=== PATIENT | male | born 1980 | race Caucasian/White ===

== ENCOUNTER → 2017-07-07 | Outpatient (REF) ==
[~2017-07-07] MED LIST: BIMA2.5D5 OP; CHOL100052 PO; LEVE-14 PO; POTA20TA94 PO
== END ==
LOC: AUD 09:35
PROVIDERS: ATTEND Internal Medicine
DX: Z01.10 Encounter for examination of ears and hearing without abnormal findings (principal)
CPT/HCPCS: 92552

== ENCOUNTER 2017-07-08 09:36 | Emergency (ER) | payer OTHER ==
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
[2017-07-08] MEDS ORDERED: KETOROLAC 60 MG/2 ML VIAL IM ONE (10:05)
--- NOTE | 2017-07-08 10:36 | RADIOLOGY IMAGING REPORT ---
FACILITY: [facility] - [place] PATIENT NAME: Gilbert Mayorga : 1980 MR: [id number] V: [id number] EXAM DATE: ORDERING PHYSICIAN: CHAKA CARROLL TECHNOLOGIST: [place] [facility] [place] Mayorg[place] : 1980 Visit/Account:[id number] Date of Sevice: 07/08/2017 Technique: CHEST PA AND LAT HISTORY: Trauma COMPARISON: None available Findings: The lungs are clear. No pleural effusion or pneumothorax. The cardiomediastinal silhouett e is normal. No acute fracture. Impression: 1. No acute cardiopulmonary process. Report Dictated By: Alfie Manning DO at 07/08/2017 10:31 AM Report E-Signed By: Alfie Manning DO at 07/08/2017 10:33 AM WSN:[id number]
[2017-07-08] MEDS ORDERED: IBUPROFEN 600 MG TAB PO ONE (11:25)
[2017-07-08 11:31] VITALS: BP 132/96
== END 2017-07-08 11:35 | disposition home or self-care (01) ==
LOC: ER 10:06
DX: S16.1XXA Strain of muscle, fascia and tendon at neck level, initial encounter (principal); F17.200 Nicotine dependence, unspecified, uncomplicated
CPT/HCPCS: 71046; 96372; 99283; J1885

== ENCOUNTER → 2017-11-04 | Outpatient (CLI) | payer OTHER ==
[~2017-11-04] MED LIST changes: +LATA2.5D7 OP; +TIMO5DRO8 OU
[2017-11-04 08:39] LABS: PLATELET COUNT, AUTOMATED 229 K/uL (150-450)
[2017-11-04 08:41] LABS: LDL CHOLESTEROL 94 mg/dl
== END ==
LOC: LAB 07:40
PROVIDERS: ATTEND Nurse Practitioner Family
DX: Z00.00 Encounter for general adult medical examination without abnormal findings (principal)
CPT/HCPCS: 36415; 82040; 82247; 82310; 82374; 82435; 82465; 82565; 82947; 83718; 84075; 84132; 84155; 84295; 84450; 84460; 84478; 84520; 85025

== ENCOUNTER → 2017-12-01 | Outpatient (CLI) | payer OTHER ==
[~2017-12-01] MED LIST changes: +GADOBENATE 529MG/1ML 15ML VIAL IVP ONE
--- NOTE | 2017-12-01 11:17 | RADIOLOGY IMAGING REPORT ---
FACILITY: [facility] PATIENT NAME: Gilbert Mayorga : 1980 MR: [id number] V: [id number] EXAM DATE: ORDERING PHYSICIAN: ANITRA SUN TECHNOLOGIST: Location: [facility] [place] Patient: Gilbert Mayorga : 1980 Visit/Account:[id number] Date of Sevice: 12/01/2017 Exam type: ORBITS FOREIGN BODY 1 VIEW History: Pre-MRI screening Comparison: None. Findings: No radiopaque metallic foreign bodies project over the orbits IMPRESSION: 1. No radiopaque metallic foreign bodies project over the orbits Report Dictated By: Lorie Munoz MD at 12/01/2017 11:08 AM Report E-Signed By: Lorie Munoz MD at 12/01/2017 11:11 AM WSN:[email or web address]
--- NOTE | 2017-12-01 16:06 | RADIOLOGY IMAGING REPORT ---
FACILITY: [facility] - [place] PATIENT NAME: Gilbert Mayorga : 1980 MR: [id number] V: [id number] EXAM DATE: ORDERING PHYSICIAN: ANITRA SUN TECHNOLOGIST: Location: [facility] Patient: Gilbert Mayorga : 1980 Visit/Account:[id number] Date of Sevice: 12/01/2017 EXAMINATION: MRI cervical spine without IV contrast MRI cervical spine with IV contrast HISTORY: Urinary dysfunction, urinary incontinence, history of optic neuritis. COMPARISON: None. TECHNIQUE: Multi-planar, multi-sequence cervical spine MRI was performed before and after IV contras t. CONTRAST: 15 mL of IV MultiHance gadolinium. FINDINGS: Alignment: Normal. Vertebral marrow signal: Negative. Cranio-cervical junction: Negative. Visualized posterior fossa: Negative. Soft tissues: Negative. Cervical cord: There is no focal cord signal abnormality or lesion. Enhancement pattern: There is no abnormal enhancement. Disc spaces: C1-2: Negative. C2-3: Negative. C3-4: Negative. C4-5: Small central disc protrusion with annular tear. No significant central canal or foraminal sten osis. C5-6: Mild disc space narrowing with small posterior osteophyte disc complex and bilateral uncoverteb ral hypertrophy. Mild central canal stenosis and moderate right foraminal stenosis. C6-7: Small posterior osteophyte disc complex and bilateral uncovertebral hypertrophy. Mild central c anal stenosis and mild right foraminal stenosis. C7-T1: Negative. Upper thoracic spine: Negative. IMPRESSION: 1. No cervical cord lesion or abnormal enhancement. 2. Degenerative disc disease and uncovertebral arthropathy is worst at C5-6 where there is mild spina l stenosis and moderate right foraminal stenosis. Please see the findings for description of individu al level disease. 3. Annular tear at C4-5. Report Dictated By: Alva Carlisle MD at 12/01/2017 3:58 PM Report E-Signed By: Alva Carlisle MD at 12/01/2017 4:01 PM WSN:[email or web address]
== END ==
LOC: MRI 03:40
PROVIDERS: ATTEND Nurse Practitioner Family
DX: M50.322 Other cervical disc degeneration at C5-C6 level (principal)
CPT/HCPCS: 70030; 72156; A9577

== ENCOUNTER → 2017-12-05 | Outpatient (CLI) | payer OTHER ==
[~2017-12-05] MED LIST changes: -GADOBENATE 529MG/1ML 15ML VIAL IVP ONE
--- NOTE | 2017-12-05 17:06 | RADIOLOGY IMAGING REPORT ---
FACILITY: [facility] PATIENT NAME: Gilbert Mayorga : 1980 MR: [id number] V: [id number] EXAM DATE: ORDERING PHYSICIAN: ANITRA SUN TECHNOLOGIST: Location: [facility] Patient: Gilbert Mayorga : 1980 Visit/Account:[id number] Date of Sevice: 12/05/2017 T SPINE W W/O CONTRAST, L SPINE W W/O CONTRAST Provided history: Urinary dysfunction, urinary incontinence. History of optic neuritis. Additional pertinent history: none TECHNIQUE: Multiplanar multisequence thoracic and lumbar MRI was performed without intravenous cont rast. COMPARISON STUDIES: No relevant priors FINDINGS: Extra-spinal soft tissues: Negative Alignment: Normal Osseous signal pattern: none Thoracic cord/conus: There is a 3 x 3 mm smoothly marginated syrinx that extends from the lower T6 le jolanta to the mid T8 level. A much smaller dilation of the central canal noted at the T9-10 level. Upper cauda equina: The conus is located at the mid to lower L2 level consistent with a tethered cord and the filum terminale is thick at the level of the upper sacrum. There is excessive fat along the filum that suggests a filum terminale lipoma. No dysraphism is appreciated. Disc Spaces: Lower cervical disks: Uppermost margin field of view demonstrate degeneration at T6-7 with at least mild compromise of the canal. Refer to comments made on cervical spine MRI 12/01/17. Upper Thoracic disks (T1-2 through T4-5): negative Mid thoracic disks (T5-6 through T8-9): Minor narrowing without herniation or stenosis. Lower thoracic disks (T9-10 through T12 -L1): negative Lumbar disks: L1-2, L2-3 and L3-4 are normal without herniation or stenotic disease. There is minor narrowing at L4-5 with a mild concentric bulge the disc. No herniation or central sten osis. Lateralizing disk-osteophyte complex and mild facet hypertrophy result in moderate narrowing of the right foramen and mild narrowing left foramen. L5-S1 is normal. IMPRESSION: 1. 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 No dysraphism or dorsal placode visualized. There is an associated syrinx of the thoracic cord as fully defined above. 2. No significant degenerative changes of thoracic spine. No central or foraminal stenosis. 3. Mild degenerative change L4-5 with moderate narrowing of the left foramen but no compromise of the canal. Report Dictated By: Kenny Solano MD at 12/05/2017 4:51 PM Report E-Signed By: Kenny Solano MD at 12/05/2017 5:02 PM WSN:[email or web address]
--- NOTE | 2017-12-05 17:07 | RADIOLOGY IMAGING REPORT ---
[place] [facility] [place] NAME: Gilbert Mayorga : 1980 MR: [id number] V: [id number] EXAM DATE: ORDERING PHYSICIAN: ANITRA SUN TECHNOLOGIST: Location: [facility] [place] Patient: Gilbert Mayorga : 1980 Visit/Account:[id number] Date of Sevice: 12/05/2017 T SPINE W W/O CONTRAST, L SPINE W W/O CONTRAST Provided history: Urinary dysfunction, urinary incontinence. History of optic neuritis. Additional pertinent history: none TECHNIQUE: Multiplanar multisequence thoracic and lumbar MRI was performed without intravenous cont rast. COMPARISON STUDIES: No relevant priors FINDINGS: Extra-spinal soft tissues: Negative Alignment: Normal Osseous signal pattern: none Thoracic cord/conus: There is a 3 x 3 mm smoothly marginated syrinx that extends from the lower T6 le jolanta to the mid T8 level. A much smaller dilation of the central canal noted at the T9-10 level. Upper cauda equina: The conus is located at the mid to lower L2 level consistent with a tethered cord and the filum terminale is thick at the level of the upper sacrum. There is excessive fat along the filum that suggests a filum terminale lipoma. No dysraphism is appreciated. Disc Spaces: Lower cervical disks: Uppermost margin field of view demonstrate degeneration at T6-7 with at least mild compromise of the canal. Refer to comments made on cervical spine MRI 12/01/17. Upper Thoracic disks (T1-2 through T4-5): negative Mid thoracic disks (T5-6 through T8-9): Minor narrowing without herniation or stenosis. Lower thoracic disks (T9-10 through T12 -L1): negative Lumbar disks: L1-2, L2-3 and L3-4 are normal without herniation or stenotic disease. There is minor narrowing at L4-5 with a mild concentric bulge the disc. No herniation or central sten osis. Lateralizing disk-osteophyte complex and mild facet hypertrophy result in moderate narrowing of the right foramen and mild narrowing left foramen. L5-S1 is normal. IMPRESSION: 1. 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 No dysraphism or dorsal placode visualized. There is an associated syrinx of the thoracic cord as fully defined above. 2. No significant degenerative changes of thoracic spine. No central or foraminal stenosis. 3. Mild degenerative change L4-5 with moderate narrowing of the left foramen but no compromise of the canal. Report Dictated By: Kenny Solano MD at 12/05/2017 4:51 PM Report E-Signed By: Kenny Solano MD at 12/05/2017 5:02 PM WSN:[email or web address]
== END ==
LOC: MRI 00:59
PROVIDERS: ATTEND Nurse Practitioner Family
DX: Q06.9 Congenital malformation of spinal cord, unspecified (principal); M51.36 Other intervertebral disc degeneration, lumbar region
CPT/HCPCS: 72157; 72158

== ENCOUNTER → 2018-06-29 | Outpatient (REF) | LOC: AUD 09:30 | PROVIDERS: ATTEND Internal Medicine | DX: Z01.12 Encounter for hearing conservation and treatment (principal) | CPT/HCPCS: 92552 ==